=== PATIENT | female | born 1980 | race Caucasian/White ===

== ENCOUNTER 2016-07-16 17:12 | Emergency (ER) | payer OTHER ==
[~2016-07-16] VITALS: Ht 170.2 cm; Wt 65.8 kg
[2016-07-16 17:21] VITALS: BP 149/81
[2016-07-16] MEDS ORDERED: KETOROLAC 30 MG/1 ML ONE (18:56)
[2016-07-16] MEDS ORDERED: KETOROLAC 30 MG/1 ML IM ONE (19:00)
== END 2016-07-16 20:11 | disposition home or self-care (01) ==
LOC: ED 20:05
DX: G50.0 Trigeminal neuralgia (principal); R42 Dizziness and giddiness
CPT/HCPCS: 70450; 96372; 99284; J1885; J7512

== ENCOUNTER 2016-08-05 19:13 | Emergency (ER) | payer OTHER ==
[~2016-08-05] VITALS: Ht 170.2 cm; Wt 64.3 kg
[2016-08-05 19:15] VITALS: BP 163/92
== END 2016-08-05 20:58 | disposition home or self-care (01) ==
LOC: ED 19:51
DX: G50.0 Trigeminal neuralgia (principal); K08.9 Disorder of teeth and supporting structures, unspecified
CPT/HCPCS: 99283

== ENCOUNTER → 2016-08-09 | Outpatient (CLI) | payer OTHER ==
[2016-08-09 08:01] LABS: HEMOGLOBIN 14.7 g/dL (11.7-16.4)
[2016-08-09 08:11] LABS: BLOOD UREA NITROGEN 12 mg/dL (7-18)
[2016-08-09 08:15] LABS: ASPARTATE AMINO TRANSFERASE 16 U/L (15-37)
== END ==
LOC: LAB 07:49
DX: R51 Headache (principal)
CPT/HCPCS: 36415; 80053; 85025; 85651

== ENCOUNTER → 2016-09-12 | Outpatient (CLI) | payer OTHER ==
[~2016-09-12] MED LIST: GADOBUTROL 7.5 MMOL/7.5 ML PFS ONE
== END | disposition home or self-care (01) ==
LOC: CFH 15:06
PROVIDERS: ATTEND Psychiatry & Neurology Neurology
DX: Q28.3 Other malformations of cerebral vessels (principal)
CPT/HCPCS: 70553; A9585

== ENCOUNTER 2017-11-30 18:06 | Inpatient (IN) | payer BC ==
[2017-11-30] MEDS ORDERED: OXYTOCIN 30U/ 0.9% NaCL 500ML 500 ML IV ONE (18:36)
[2017-11-30] MEDS ORDERED: D5%-LACTATED RINGERS 1,000 ML IV SCH (18:36)
[2017-11-30] MEDS ORDERED: NEWBORN KIT ONE (18:57)
[2017-11-30] MEDS ORDERED: OXYTOCIN 30U/ 0.9% NaCL 500ML 500 ML ONE ×2 (18:57→19:57)
[2017-11-30] MEDS ORDERED: ONDANSETRON 2MG/ML, 2ML IVPush PRN (19:00)
[2017-11-30] MEDS ORDERED: TERBUTALINE 1 MG/ML, 1ML IVPush PRN (19:00)
[2017-11-30] MEDS ORDERED: FENTANYL PF 100 MCG/2ML IV PRN (19:00)
[2017-11-30] MEDS ORDERED: FENTANYL PF 100 MCG/2ML IVPush PRN (19:00)
[2017-11-30] MEDS ORDERED: MISOPROSTOL 200 MCG TABLET ONE (19:06)
[2017-11-30] MEDS ORDERED: LIDOCAINE/PF 1%, 30ML ONE (19:06)
[2017-11-30 19:10] LABS: BASOPHILS # (AUTO) 0.05 x10^3/uL (0-0.1); BASOPHILS % (AUTO) 0 % (0-1); EOSINOPHILS % (AUTO) 1 % (1-7); LYMPHOCYTES # (AUTO) 2.09 x10^3/uL (1-3.4); LYMPHOCYTES % (AUTO) 14 % (22-44); MD NO; MEAN CORPUSCULAR HGB CONC 34.3 g/dL (32.4-35.8); MEAN CORPUSCULAR VOLUME 96.3 fL (80-100); MEAN PLATELET VOLUME 8.6 fL (7.4-10.4); MONOCYTES % (AUTO) 6 % (2-9); NEUTROPHILS # (AUTO) 11.48 x10^3/uL (1.8-6.8); NEUTROPHILS % (AUTO) 79 % (42-75); PLATELET COUNT 301 x10^3/uL (130-400); RED BLOOD COUNT 4.52 x10^6/uL (3.82-5.3); RED CELL DISTRIBUTION WIDTH 12.6 % (9.6-15.2)
[2017-11-30] MEDS ORDERED: METHYLERGONOVINE 0.2 MG/ML IM ONE (19:40)
[2017-11-30] MEDS ORDERED: IBUPROFEN 600 MG TABLET ONE (19:43)
[2017-11-30] MEDS: OXYTOCIN 30U/ 0.9% NaCL 500ML 500 ML IV SCH (19:49)
[2017-11-30] MEDS ORDERED: OXYTOCIN 30U/ 0.9% NaCL 500ML 500 ML IV SCH (19:49)
[2017-11-30] MEDS ORDERED: ONDANSETRON 2MG/ML, 2ML IV PRN (20:00)
[2017-11-30] MEDS ORDERED: ACETAMINOPHEN 325 MG TABLET PO PRN ×3 (20:00)
[2017-11-30] MEDS ORDERED: HYDROcodone/APAP 5/325 TABLET PO PRN (20:00)
[2017-11-30] MEDS ORDERED: BISACODYL 10 MG SUPP PR PRN (20:00)
[2017-11-30] MEDS ORDERED: DOCUSATE 100 MG CAPSULE PO PRN (20:00)
[2017-11-30] MEDS ORDERED: CALCIUM CARBONATE 500 MG TAB.CHEW PO PRN (20:00)
[2017-11-30] MEDS ORDERED: IBUPROFEN 600 MG TABLET PO PRN (20:00)
[2017-11-30] MEDS ORDERED: MISOPROSTOL 200 MCG TABLET PR PRN (20:00)
[2017-11-30] MEDS: LACTATED RINGERS 1,000 ML IV SCH (21:28)
[2017-11-30] MEDS ORDERED: METHYLERGONOVINE 0.2 MG/ML IM PRN (21:30)
[2017-11-30 22:10] VITALS: BP 123/75
[2017-12-01 00:15] VITALS: BP 128/74
[2017-12-01] MEDS: LACTATED RINGERS 1,000 ML IV SCH (02:36)
[2017-12-01 03:13] LABS: MEAN CORPUSCULAR HEMOGLOBIN 33.4 pg (27.0-34.8); MEAN CORPUSCULAR HGB CONC 34.5 g/dL (32.4-35.8); MEAN CORPUSCULAR VOLUME 96.8 fL (80-100); MEAN PLATELET VOLUME 8.1 fL (7.4-10.4); PLATELET COUNT 282 x10^3/uL (130-400); RED BLOOD COUNT 3.49 x10^6/uL (3.82-5.3); RED CELL DISTRIBUTION WIDTH 12.6 % (9.6-15.2)
[2017-12-01 03:30] LABS: BASOPHILS # (AUTO) 0.07 x10^3/uL (0-0.1); BASOPHILS % (AUTO) 0 % (0-1); EOSINOPHILS # (AUTO) 0.04 x10^3/uL (0-0.4); EOSINOPHILS % (AUTO) 0 % (1-7); LYMPHOCYTES # (AUTO) 2.34 x10^3/uL (1-3.4); LYMPHOCYTES % (AUTO) 14 % (22-44); MD SCAN; MONOCYTES # (AUTO) 1.63 x10^3/uL (0.2-0.8); MONOCYTES % (AUTO) 10 % (2-9); NEUTROPHILS # (AUTO) 12.32 x10^3/uL (1.8-6.8); NEUTROPHILS % (AUTO) 75 % (42-75)
[2017-12-01 04:15] VITALS: BP 105/63
[2017-12-01] MEDS: OXYTOCIN 30U/ 0.9% NaCL 500ML 500 ML IV SCH (05:49)
[2017-12-01 07:45] VITALS: BP 113/77
[2017-12-01] MEDS ORDERED: PRENATAL VIT/IRON/FA 1 EACH TABLET PO SCH (09:00)
[2017-12-01 12:30] VITALS: BP 108/63
[2017-12-01 17:00] VITALS: BP 110/69
[2017-12-01 19:18] VITALS: BP 129/77
[2017-12-01] MEDS ORDERED: IBUP-1222 PO (19:21)
[2017-12-01] MEDS ORDERED: DOCU-131 PO ×2 (19:21→19:28)
[2017-12-01] MEDS ORDERED: ACET325T14 PO (19:25)
[2017-12-01] MEDS ORDERED: PREN-3 PO (19:27)
== END 2017-12-01 22:20 | disposition home or self-care (01) | DRG 775 ==
LOC: LDOP 18:06 → LDIP 18:36 → 2NW 21:52
PROVIDERS: ADMIT Obstetrics & Gynecology Maternal & Fetal Medicine; ATTEND Obstetrics & Gynecology Maternal & Fetal Medicine
PROC: 10E0XZZ Delivery of Products of Conception, External Approach (ICD-10-PCS; principal; 2017-11-30)
PROC: 0UQG0ZZ Repair Vagina, Open Approach (ICD-10-PCS; 2017-11-30)
PROC: 10907ZC Drainage of Amniotic Fluid, Therapeutic from Products of Conception, Via Natural or Artificial Opening (ICD-10-PCS; 2017-11-30)
DX: O69.81X0 Labor and delivery complicated by cord around neck, without compression, not applicable or unspecified (principal); O71.89 Other specified obstetric trauma; Z37.0 Single live birth; Z3A.40 40 weeks gestation of pregnancy; Z80.3 Family history of malignant neoplasm of breast; Z82.3 Family history of stroke; Z83.3 Family history of diabetes mellitus; Z88.0 Allergy status to penicillin
CPT/HCPCS: 36415; 85025; 86850; 86900; J7120